=== PATIENT | female | born 1975 | race Caucasian/White ===

== ENCOUNTER → 2017-06-18 | Outpatient (CLI) | payer BC | END | disposition home or self-care (01) | LOC: LAB 08:31 | DX: N39.0 Urinary tract infection, site not specified (principal); R10.2 Pelvic and perineal pain | CPT/HCPCS: 87086 ==

== ENCOUNTER → 2017-06-19 | Outpatient (CLI) | payer BC ==
[2017-06-20 08:19] LABS: Specimen Source VAGINAL
[2017-06-20 14:35] LABS: Candida species (DNA Probe) Negative (NEGATIVE); G. vaginalis (DNA Probe) Positive (NEGATIVE); T. vaginalis (DNA Probe) Negative (NEGATIVE)
[2017-06-21 01:24] LABS: Source VAGINAL
== END | disposition home or self-care (01) ==
LOC: LAB 08:16
PROVIDERS: Nurse Practitioner Family
DX: R10.2 Pelvic and perineal pain (principal)
CPT/HCPCS: 87480; 87491; 87510; 87591; 87660

== ENCOUNTER → 2017-07-14 | Outpatient (CLI) | payer BC | LOC: LAB 16:50 | DX: R30.0 Dysuria (principal) | CPT/HCPCS: 87086 ==